=== PATIENT | male | born 1985 | race Hispanic/Latino ===

== ENCOUNTER 2024-03-24 14:24 | Emergency (ER) | payer BC, OTHER ==
[~2024-03-24] VITALS: Ht 165.1 cm; Wt 140.6 kg
[~2024-03-24 14:24] MED LIST: BENZONATATE200 MG PO; IBUPROFEN600 MG PO; LOSARTAN POTAS100 MG PO; PROAIR HFA INH8.5 GM PEG
[2024-03-24 15:06] VITALS: PULSE 88; RESP 18; TEMP 97.8
[2024-03-24 15:18] LABS: BASOPHILS # (AUTO) 0.1 (0.0-0.1); BASOPHILS % 0.5 % (0.0-1.0); EOSINOPHILS # (AUTO) 0.2 (0.0-0.4); EOSINOPHILS % 1.8 % (0.0-6.0); HEMATOCRIT 43.2 % (38.2-49.6); HEMOGLOBIN 14.4 g/dL (14.0-18.0); LYMPHOCYTES # (AUTO) 2.4 (1.0-3.2); LYMPHOCYTES % 25.7 % (18.0-39.1); MEAN CORPUSCULAR HGB CONC 33.3 g/dL (31-35); MEAN CORPUSCULAR VOLUME 92.9 fL (81-99); MONOCYTES # (AUTO) 0.7 (0.2-0.8); MONOCYTES % 7.5 % (4.4-11.3); NEUTROPHILS # (AUTO) 5.9 (2.1-6.9); NEUTROPHILS % 64.1 % (38.7-80.0); PLATELET COUNT 273 x10e3/uL (140-360); RED BLOOD COUNT 4.65 x10e6/uL (4.3-5.7); RED CELL DISTRIBUTION WIDTH 13.2 % (11.7-14.4); WHITE BLOOD COUNT 9.21 x10e3/uL (4.8-10.8)
[2024-03-24 15:32] LABS: ALBUMIN 4.1 g/dL (3.5-5.0); ANION GAP 16.4 mmol/L (8-16); BILIRUBIN,TOTAL 0.4 mg/dL (0.2-1.2); CALCIUM 10.2 mg/dL (8.4-10.2); CREATININE, SERUM 1.21 mg/dL (0.72-1.25); TOTAL PROTEIN 8.2 g/dL (6.5-8.1)
[2024-03-24 15:34] LABS: POTASSIUM 3.4 mmol/L (3.5-5.1)
[2024-03-24 15:38] LABS: TROPONIN I 0.018 ng/mL (0-0.300)
[2024-03-24] MEDS: ONDANSETRON HCL INJ 2MG/ML 2ML 2 MG/ML VIAL IV STA (16:08)
[2024-03-24] MEDS: SODIUM CHLORIDE FLUSH 10 ML SYR IV PRN (16:08)
[2024-03-24] MEDS: ASPIRIN 81 MG CHEW TAB PO ONE (16:08)
[2024-03-24 18:54] VITALS: BP 115/68; PULSE 72; RESP 18; TEMP 98.1; O2SAT 99
== END 2024-03-24 18:56 | disposition home or self-care (01) ==
LOC: ER 16:06
DX: R06.02 Shortness of breath (principal); R07.89 Other chest pain; I10 Essential (primary) hypertension; E78.5 Hyperlipidemia, unspecified; K21.9 Gastro-esophageal reflux disease without esophagitis; E66.01 Morbid (severe) obesity due to excess calories
CPT/HCPCS: 36415; 71046; 80053; 83880; 84484; 85025; 93005; 94760; 99284; J2405